=== PATIENT | male | born 1945 | race Caucasian/White ===

== ENCOUNTER 2017-05-19 10:15 | Emergency (ER) | payer MEDICARE, OTHER, BC ==
[~2017-05-19] VITALS: Ht 165.1 cm; Wt 68.0 kg
[2017-05-19] MEDS ORDERED: IV NORMAL SALINE 1,000ML 1,000 ML IV ONE ×2 (11:00→12:15)
[2017-05-19 11:18] LABS: CALCIUM 8.8 mg/dL (8.5-10.1); GFR 73.5; POTASSIUM 4.2 mmol/L (3.5-5.1)
[2017-05-19 11:24] LABS: BASO % 1 % (0-3); EOS # 0.1 x10^3/uL (0.0-0.7); EOS % 2 % (0-3); HEMATOCRIT 44.6 % (39.0-53.0); HEMOGLOBIN 15.6 g/dL (13.0-17.5); LYMPH # 0.7 x10^3/uL (1.0-4.8); LYMPH % 12 % (24-48); MEAN CORPUSCULAR HEMOGLOBIN 35 pg (25-35); MEAN CORPUSCULAR HGB CONC 35 g/dL (31-37); MEAN CORPUSCULAR VOLUME 99 fL (79-100); MONO # 0.4 x10^3/uL (0.0-1.1); MONO % 7 % (0-9); NEUT # 4.8 x10^3uL (1.8-7.7); NEUT % 79 % (31-73); PLATELET COUNT 199 x10^3/uL (140-400); RED BLOOD COUNT 4.49 x10^6/uL (4.30-5.70); RED CELL DISTRIBUTION WIDTH 12.3 % (11.5-14.5); WHITE BLOOD COUNT 6.1 x10^3/uL (4.0-11.0)
[2017-05-19] MEDS ORDERED: KETOROLAC 30 MG/ML VIAL. IV ONE (11:40)
[2017-05-19] MEDS ORDERED: ONDANSETRON PF 4 MG/2 ML VIAL. IV ONE (11:45)
[2017-05-19 12:52] VITALS: BP 143/76
--- NOTE | 2017-05-19 12:53 | RAD ---
CT Abdomen and Pelvis without contrast History: Left flank pain for 24 hours, history of renal stones Technique: Noncontrast CT imaging was performed of the abdomen and pelvis. Multiplanar images are reviewed. Exposure: One or more of the following individualized dose reduction techniques were utilized for this examination: 1. Automated exposure control 2. Adjustment of the mA and/or kV according to patient size 3. Use of iterative reconstruction technique. Comparison: None Findings: There is mild left hydronephrosis, also mild right renal pelvocaliectasis. However ureters are not dilated, left ureter in the pelvis difficult to visualize due to artifact created by hip arthroplasty. Urinary bladder is somewhat distended. There are bilateral renal calculi, about 10 on the right and about 15 on the left. Largest of the mid right kidney measures 0.8 cm and largest inferiorly on the left about 0.3 cm. There is 2.8 cm inferior left renal cyst and also 3.3 cm superior left renal cyst. There is also probable small cyst of the right kidney about 1.1 cm in size. There is likely mild atelectasis right lower lobe near base.Accurate evaluation of abdominal visceral organs is limited without intravenous contrast. There is no obvious abnormality of the spleen, liver, or pancreas. There is no adrenal nodularity. No significantly enlarged nodes are identified. Accurate evaluation of bowel is limited without oral contrast. There is retained stool greatest of the right colon. There is no free air or free fluid. Normal appendix is visualized. There is multilevel lumbar degenerative disc disease and spondylosis as well as facet degenerative change. Impression: 1. There is mild left hydronephrosis and mild right pelvocaliectasis, no ureteral calculus identified although the distal left ureter in the pelvis obscured by artifact created by hip arthroplasty. There are multiple bilateral renal calculi. There are bilateral renal cysts. 2. There is retained stool greatest of the right colon. Electronically signed by: Janes Norris MD (05/19/2017 12:50 PM) [email or web address]
--- NOTE | 2017-05-19 13:26 | PHYS DOC ---
Past History Past Medical History: Kidney Stones Alcohol Use: None Drug Use: None Adult General Chief Complaint Chief Complaint: FLANK PAIN HPI HPI Patient is a 72 year old M who presents with constant sharp left-sided flank pain with moderate fluctuating intensity consistent with previous kidney stones. Jaron also states that he had been less active over the past 2 weeks due to a respiratory infection. His respiratory symptoms had improved and 2 days ago he states that he was working in his shop as he did prior to his respiratory infection. He does not note injury or excessive activity. He has no other associated symptoms. He has no exacerbating or alleviating factors. Review of Systems Review of Systems Constitutional: Denies fever or chills [] Eyes: Denies change in visual acuity, redness, or eye pain [] HENT: Denies nasal congestion or sore throat [] Respiratory: Denies cough or shortness of breath [] Cardiovascular: No additional information not addressed in HPI [] GI: Denies abdominal pain, bloody stools or diarrhea [] : Negative except history of present illness Musculoskeletal: Denies back pain or joint pain [] Integument: Denies rash or skin lesions [] Neurologic: Denies headache, focal weakness or sensory changes [] Endocrine: Denies polyuria or polydipsia [] All other systems were reviewed and found to be within normal limits, except as documented in this note. Family History Family History No pertinent family medical history was reported Current Medications Current Medications Current Medications Medications (Trade) Dose Ordered Sig/Chastity Start Time Stop Time Status Last Admin Dose Admin Fentanyl Citrate (Fentanyl 2ml Vial) 50 mcg Q1HR PRN 05/19/17 11:00 05/19/17 12:24 50 MCG Ketorolac Tromethamine (Toradol) 30 mg 1X ONCE 05/19/17 11:40 05/19/17 11:41 DC Ondansetron HCl (Zofran) 4 mg 1X ONCE 05/19/17 11:45 05/19/17 11:46 DC Sodium Chloride 1,000 ml @ 1,000 mls/hr 1X ONCE 05/19/17 12:15 05/19/17 13:14 DC Allergies Allergies Allergies Coded Allergies Type Severity Reaction Last Updated Verified No Known Drug Allergies 05/19/17 No Physical Exam Physical Exam Constitutional: Well developed, well nourished, non-toxic appearance. [] Mild distress due to pain noted HENT: Normocephalic, atraumatic Eyes: EOMI, conjunctiva normal, no discharge. [] Neck: Normal range of motion, no tenderness, supple, no stridor. [] Cardiovascular: Heart rate regular rhythm Lungs & Thorax: Bilateral breath sounds clear to auscultation [] Abdomen: Bowel sounds normal, soft, no masses, no pulsatile masses. [] Skin: Warm, dry, no erythema, no rash. [] Back: No tenderness, no CVA tenderness. [] Extremities: No tenderness, no cyanosis, no clubbing, ROM intact, no edema. [] Neurologic: Alert and oriented X 3, normal motor function, normal sensory function, no focal deficits noted. [] Psychologic: Affect normal, judgement normal, mood normal. [] Current Patient Data Vital Signs Vital Signs Date Time Temp Pulse Resp B/P (MAP) Pulse Ox O2 Delivery O2 Flow Rate FiO2 05/19/17 12:24 97 05/19/17 12:22 89 150/82 (104) 05/19/17 11:01 98.5 18 Room Air Lab Results Laboratory Tests Test 05/19/17 10:50 White Blood Count 6.1 x10^3/uL (4.0-11.0) Red Blood Count 4.49 x10^6/uL (4.30-5.70) Hemoglobin 15.6 g/dL (13.0-17.5) Hematocrit 44.6 % (39.0-53.0) Mean Corpuscular Volume 99 fL (79-100) Mean Corpuscular Hemoglobin 35 pg (25-35) Mean Corpuscular Hemoglobin Concent 35 g/dL (31-37) Red Cell Distribution Width 12.3 % (11.5-14.5) Platelet Count 199 x10^3/uL (140-400) Neutrophils (%) (Auto) 79 % (31-73) H Lymphocytes (%) (Auto) 12 % (24-48) L Monocytes (%) (Auto) 7 % (0-9) Eosinophils (%) (Auto) 2 % (0-3) Basophils (%) (Auto) 1 % (0-3) Neutrophils # (Auto) 4.8 x10^3uL (1.8-7.7) Lymphocytes # (Auto) 0.7 x10^3/uL (1.0-4.8) L Monocytes # (Auto) 0.4 x10^3/uL (0.0-1.1) Eosinophils # (Auto) 0.1 x10^3/uL (0.0-0.7) Basophils # (Auto) 0.0 x10^3/uL (0.0-0.2) Sodium Level 136 mmol/L (136-145) Potassium Level 4.2 mmol/L (3.5-5.1) Chloride Level 102 mmol/L (98-107) Carbon Dioxide Level 26 mmol/L (21-32) Anion Gap 8 (6-14) Blood Urea Nitrogen 19 mg/dL (8-26) Creatinine 1.0 mg/dL (0.7-1.3) Estimated GFR (Cockcroft-Gault) 73.5 Glucose Level 128 mg/dL (70-99) H Calcium Level 8.8 mg/dL (8.5-10.1) EKG EKG [] Radiology/Procedures Radiology/Procedures CT abd/pelvis non contrast Impressions: Findings: There is mild left hydronephrosis, also mild right renal pelvocaliectasis. However ureters are not dilated, left ureter in the pelvis difficult to visualize due to artifact created by hip arthroplasty. Urinary bladder is somewhat distended. There are bilateral renal calculi, about 10 on the right and about 15 on the left. Largest of the mid right kidney measures 0.8 cm and largest inferiorly on the left about 0.3 cm. There is 2.8 cm inferior left renal cyst and also 3.3 cm superior left renal cyst. There is also probable small cyst of the right kidney about 1.1 cm in size. There is likely mild atelectasis right lower lobe near base.Accurate evaluation of abdominal visceral organs is limited without intravenous contrast. There is no obvious abnormality of the spleen, liver, or pancreas. There is no adrenal nodularity. No significantly enlarged nodes are identified. Accurate evaluation of bowel is limited without oral contrast. There is retained stool greatest of the right colon. There is no free air or free fluid. Normal appendix is visualized. There is multilevel lumbar degenerative disc disease and spondylosis as well as facet degenerative change. Impression: 1. There is mild left hydronephrosis and mild right pelvocaliectasis, no ureteral calculus identified although the distal left ureter in the pelvis obscured by artifact created by hip arthroplasty. There are multiple bilateral renal calculi. There are bilateral renal cysts. 2. There is retained stool greatest of the right colon. Course & Med Decision Making Course & Med Decision Making Pertinent Labs and Imaging studies reviewed. (See chart for details) [] Dragon Disclaimer Dragon Disclaimer This electronic medical record was generated, in whole or in part, using a voice recognition dictation system. Departure Departure: Impression: Primary Impression: Left nephrolithiasis Disposition: HOME, SELF-CARE Condition: STABLE Referrals: EDWARD HODGES DO (PCP) Patient Instructions: Kidney Stones Additional Instructions: Jaron was seen in the emergency department for left-sided flank pain. No emergency medical condition was found on history or physical exam. He did have normal labs and imaging that was consistent with a left-sided kidney stone. He was advised to return to the emergency room if he develops new or worsening symptoms. He was also advised follow up with his primary care doctor as needed for further management. AMARA HARPER MD May 19, 2017 13:26
[2017-05-19 13:47] LABS: COLOR,URINE YELLOW
[2017-05-19 13:48] LABS: BILIRUBIN,URINE NEG (NEG); CLARITY,URINE HAZY; GLUCOSE,URINE NEG (NEG); NITRITE,URINE NEG (NEG); UROBILINOGEN,URINE 0.2 mg/dL (0.2 mg/dL)
[2017-05-19 13:49] LABS: BACTERIA,URINE 0 /HPF (0-FEW); RBC,URINE 0 /HPF (0-2); WBC,URINE 0 /HPF (0-4)
== END 2017-05-19 14:19 | disposition home or self-care (01) ==
LOC: ER 10:15
DX: N20.0 Calculus of kidney (principal); Z87.442 Personal history of urinary calculi
CPT/HCPCS: 36415; 74176; 80048; 81001; 85025; 96361; 96374; 99285; J3010; J7030

== ENCOUNTER → 2017-08-27 | Outpatient (CLI) | payer MEDICARE, OTHER, BC ==
[2017-08-27 10:31] LABS: BASO % 1 % (0-3); EOS # 0.4 x10^3/uL (0.0-0.7); EOS % 6 % (0-3); HEMATOCRIT 46.4 % (39.0-53.0); HEMOGLOBIN 16.3 g/dL (13.0-17.5); LYMPH % 18 % (24-48); MEAN CORPUSCULAR HEMOGLOBIN 35 pg (25-35); MEAN CORPUSCULAR HGB CONC 35 g/dL (31-37); MEAN CORPUSCULAR VOLUME 100 fL (79-100); MONO # 0.5 x10^3/uL (0.0-1.1); MONO % 9 % (0-9); NEUT # 3.8 x10^3uL (1.8-7.7); NEUT % 66 % (31-73); PLATELET COUNT 188 x10^3/uL (140-400); RED BLOOD COUNT 4.65 x10^6/uL (4.30-5.70); RED CELL DISTRIBUTION WIDTH 12.3 % (11.5-14.5); WHITE BLOOD COUNT 5.7 x10^3/uL (4.0-11.0)
[2017-08-27 10:41] LABS: ALBUMIN 4.1 g/dL (3.4-5.0); ALBUMIN/GLOBULIN RATIO 1.4 (1.0-1.7); CALCIUM 8.8 mg/dL (8.5-10.1); GFR 73.5; POTASSIUM 4.1 mmol/L (3.5-5.1); TOTAL BILIRUBIN 0.7 mg/dL (0.2-1.0); TOTAL PROTEIN 7.1 g/dL (6.4-8.2)
[2017-08-27 13:41] LABS: THYROID STIM HORMONE (TSH) 1.752 uIU/mL (0.358-3.740)
[2017-08-27 23:07] LABS: T3 TOTAL 93 ng/dL (71-180); TESTOSTERONE TOTAL 848 ng/dL (264-916); THYROXINE 6.9 ug/dL (4.5-12.0)
[2017-08-28 02:11] LABS: HEMOGLOBIN A1C 5.4 % (4.8-5.6)
== END | disposition home or self-care (01) ==
LOC: LAB 09:03
PROVIDERS: ATTEND General Practice
DX: I10 Essential (primary) hypertension (principal); E78.5 Hyperlipidemia, unspecified; E03.9 Hypothyroidism, unspecified; K21.9 Gastro-esophageal reflux disease without esophagitis; Z87.442 Personal history of urinary calculi
CPT/HCPCS: 36415; 80053; 80061; 82306; 83036; 84403; 84436; 84443; 84480; 85025